=== PATIENT | female | born 1980 | race Hispanic/Latino ===

== ENCOUNTER → 2024-01-29 | Outpatient (REF) | payer OTHER ==
[~2024-01-29] MED LIST: DIATRIZOATE MEGL/DIATRIZOA SOD 30 ML BTL PO ONE; IOPAMIDOL 370 MG/ML 100 ML INFUS..BTL INJ ONE
[2024-01-29 14:44] LABS: CREATININE, SERUM 0.78 mg/dL (0.57-1.11)
== END ==
LOC: CT 13:53
PROVIDERS: ATTEND Surgery
DX: K43.9 Ventral hernia without obstruction or gangrene (principal)
CPT/HCPCS: 36415; 74177; 82565; 84520; Q9963; Q9967

== ENCOUNTER 2024-03-04 08:13 | Observation (INO) | payer OTHER ==
[2024-02-29 11:30] LABS: BASOPHILS % 0.3 % (0.0-1.0); EOSINOPHILS # (AUTO) 0.1 (0.0-0.4); EOSINOPHILS % 1.7 % (0.0-6.0); HEMATOCRIT 42.9 % (34.2-44.1); HEMOGLOBIN 12.9 g/dL (12.0-16.0); LYMPHOCYTES # (AUTO) 2.8 (1.0-3.2); LYMPHOCYTES % 36.2 % (18.0-39.1); MEAN CORPUSCULAR HEMOGLOBIN 27.3 pg (28-32); MEAN CORPUSCULAR HGB CONC 30.1 g/dL (31-35); MEAN CORPUSCULAR VOLUME 90.7 fL (81-99); MONOCYTES # (AUTO) 0.4 (0.2-0.8); MONOCYTES % 5.7 % (4.4-11.3); NEUTROPHILS # (AUTO) 4.3 (2.1-6.9); NEUTROPHILS % 55.8 % (38.7-80.0); PLATELET COUNT 210 x10e3/uL (140-360); RED BLOOD COUNT 4.73 x10e6/uL (3.6-5.1); RED CELL DISTRIBUTION WIDTH 14.5 % (11.7-14.4); WHITE BLOOD COUNT 7.71 x10e3/uL (4.8-10.8)
[2024-02-29 11:55] LABS: ALBUMIN 3.6 g/dL (3.5-5.0); ALBUMIN/GLOBULIN RATIO 0.9 (0.8-2.0); ANION GAP 13.9 mmol/L (8-16); BILIRUBIN,TOTAL 0.6 mg/dL (0.2-1.2); CALCIUM 9.2 mg/dL (8.4-10.2); CREATININE, SERUM 0.72 mg/dL (0.57-1.11); POTASSIUM 3.9 mmol/L (3.5-5.1); TOTAL PROTEIN 7.5 g/dL (6.5-8.1)
[~2024-03-04] VITALS: Ht 152.4 cm; Wt 134.3 kg
[~2024-03-04 08:13] MED LIST changes: -DIATRIZOATE MEGL/DIATRIZOA SOD 30 ML BTL PO ONE; -IOPAMIDOL 370 MG/ML 100 ML INFUS..BTL INJ ONE; +LEVOTHYROXINE112 MCG PO; +METFORMIN HCL500 MG PO; +OZEMPIC0.25 MG/02 SC
[2024-03-04] MEDS: LACTATED RINGER'S 1,000 ML ONE (08:55)
[2024-03-04] MEDS ORDERED: PROPOFOL IV EMULSION 10 MG/ML 20 ML VIAL ONE (09:02)
[2024-03-04] MEDS ORDERED: LIDOCAINE HCL 2% LOCAL INJ 5 ML SDV VIAL INJ ONE (09:03)
[2024-03-04] MEDS ORDERED: FENTANYL CITRATE/PF 100MCG/2 ML INJ ONE ×2 (09:03→10:51)
[2024-03-04] MEDS ORDERED: ROCURONIUM BROMIDE 1 ML IV ONE ×2 (09:03→10:32)
[2024-03-04] MEDS ORDERED: SUCCINYLCHOLINE CHLORIDE 20 MG/ML 10ML VIAL ONE (09:03)
[2024-03-04] MEDS ORDERED: BUPIVACAINE/EPI 0.5% 30ML SDV-MPF INJ ONE (10:05)
[2024-03-04] MEDS ORDERED: ACETAMINOPHEN 1000 MG/100 ML 100 ML IV ONE (10:18)
[2024-03-04] MEDS ORDERED: KETAMINE 50MG/5ML SYR ONE (10:27)
[2024-03-04] MEDS ORDERED: SUGAMMADEX SODIUM 200 MG/2 ML VIAL IV ONE (11:34)
[2024-03-04] MEDS ORDERED: KETOROLAC TROMETHAMINE 30 MG/ML VIAL IV PRN (12:15)
[2024-03-04 13:00] VITALS: BP 130/85; PULSE 71; RESP 16; TEMP 97.6; O2SAT 99
[2024-03-04] MEDS: HYDROMORPHONE 1MG/1ML INJ IV PRN (13:15)
[2024-03-04] MEDS: ONDANSETRON HCL INJ 2MG/ML 2ML 2 MG/ML VIAL IV PRN (13:16)
[2024-03-04] MEDS: SODIUM CHLORIDE 0.9% 1000ML 1,000 ML IV SCH (13:53)
[2024-03-04] MEDS: HYDROCODONE/APAP 7.5MG-325MG 1 EA TAB PO PRN (14:53)
[2024-03-04 16:00] VITALS: BP 120/74; PULSE 73; RESP 16; TEMP 98.3; O2SAT 100
[2024-03-04 17:41] VITALS: BP 120/74; PULSE 73; RESP 16; TEMP 98.3; O2SAT 100
[2024-03-04] MEDS ORDERED: ATORVASTATIN CA10 MG PO (17:51)
[2024-03-04 20:00] VITALS: BP 105/69; PULSE 68; RESP 18; TEMP 98.2; O2SAT 98
[2024-03-04] MEDS: METFORMIN HCL 500 MG TAB PO SCH (20:32)
[2024-03-05 05:17] LABS: BASOPHILS % 0.1 % (0.0-1.0); HEMATOCRIT 36.4 % (34.2-44.1); LYMPHOCYTES # (AUTO) 2.1 (1.0-3.2); LYMPHOCYTES % 16.6 % (18.0-39.1); MEAN CORPUSCULAR HEMOGLOBIN 27.6 pg (28-32); MEAN CORPUSCULAR HGB CONC 30.2 g/dL (31-35); MEAN CORPUSCULAR VOLUME 91.5 fL (81-99); MONOCYTES # (AUTO) 0.7 (0.2-0.8); MONOCYTES % 5.9 % (4.4-11.3); NEUTROPHILS # (AUTO) 9.5 (2.1-6.9); NEUTROPHILS % 77.1 % (38.7-80.0); PLATELET COUNT 193 x10e3/uL (140-360); RED BLOOD COUNT 3.98 x10e6/uL (3.6-5.1); RED CELL DISTRIBUTION WIDTH 14.6 % (11.7-14.4); WHITE BLOOD COUNT 12.35 x10e3/uL (4.8-10.8)
[2024-03-05 05:42] LABS: ANION GAP 12.8 mmol/L (8-16); CALCIUM 8.2 mg/dL (8.4-10.2); CREATININE, SERUM 0.65 mg/dL (0.57-1.11); POTASSIUM 3.8 mmol/L (3.5-5.1)
[2024-03-05 08:00] VITALS: BP 105/69; PULSE 68; RESP 18; TEMP 98.2; O2SAT 98
[2024-03-05 08:20] VITALS: BP 103/73; PULSE 79; RESP 20; TEMP 97.7; O2SAT 98
[2024-03-05 12:04] VITALS: BP 115/64; PULSE 69; RESP 18; TEMP 97.9; O2SAT 97
== END 2024-03-05 15:52 | disposition home or self-care (01) ==
LOC: OR 08:13 → PACU V 12:44 → MED/SURG 12:58
PROVIDERS: ADMIT Surgery; ATTEND Surgery
DX: K43.6 Other and unspecified ventral hernia with obstruction, without gangrene (principal); E11.9 Type 2 diabetes mellitus without complications; Z79.85 Long-term (current) use of injectable non-insulin antidiabetic drugs; Z79.84 Long term (current) use of oral hypoglycemic drugs; E66.01 Morbid (severe) obesity due to excess calories; Z68.43 Body mass index [BMI] 50.0-59.9, adult; G47.33 Obstructive sleep apnea (adult) (pediatric); K76.0 Fatty (change of) liver, not elsewhere classified; K75.9 Inflammatory liver disease, unspecified; Z01.810 Encounter for preprocedural cardiovascular examination; Z01.812 Encounter for preprocedural laboratory examination; Z79.899 Other long term (current) drug therapy
CPT/HCPCS: 36415 ×3; 49594; 80048; 80053; 82948 ×2; 84702; 85025 ×2; 88302; 93005; C1781; G0378 ×2; J0131; J0330; J0690 ×2; J1171; J2003; J2405; J2470 ×2; J2704; J3010; J7030 ×2; J7121